=== PATIENT | male | born 1965 | race African-American/Black ===

== ENCOUNTER 2023-04-22 13:11 | Emergency (ER) | payer SELFPAY | END 2023-04-22 14:07 | disposition home or self-care (01) | LOC: MW.ED 13:11 | DX: Z76.0 Encounter for issue of repeat prescription (principal); I10 Essential (primary) hypertension; E11.9 Type 2 diabetes mellitus without complications; F17.210 Nicotine dependence, cigarettes, uncomplicated; Z79.899 Other long term (current) drug therapy | CPT/HCPCS: 82947; 99282 ==